=== PATIENT | male | born 1955 | race American Indian/Alaskan Native ===

== ENCOUNTER 2018-04-18 09:52 | Outpatient (CLI) | payer BC ==
--- NOTE | 2018-04-18 11:10 | CT ---
HEAD CT WITHOUT CONTRAST: 04/18/2018 HISTORY: Fall. Headache. Subdural hematoma. COMPARISON: None. TECHNIQUE: Serial axial CT imaging at 4.5 mm intervals, from the vertex through the skull base, without contrast . FINDINGS: The imaged paranasal sinuses and mastoid air cells are well aerated. There is no displaced calvarial fracture. There is no intracranial hemorrhage, midline shift, mass effect, or ventricular enlargement. IMPRESSION: No intracranial hemorrhage or displaced calvarial fracture. POS: [facility]
== END 2018-04-18 09:53 | disposition home or self-care (01) ==
LOC: TBSIIMAG 09:52
PROVIDERS: ATTEND Surgery
DX: S06.5X0A Traumatic subdural hemorrhage without loss of consciousness, initial encounter (principal)
CPT/HCPCS: 70450

== ENCOUNTER 2019-05-18 14:53 | Inpatient (IN) | payer BC ==
[2019-05-18] MEDS ORDERED: HumaLOG 300 UNITS/3 ML VIAL SC PRN (17:48)
[2019-05-18] MEDS ORDERED: traMADol HCl 50 MG TAB PO PRN (17:49)
[2019-05-18] MEDS ORDERED: Tuberculin PPD 0.1 ML VIAL I-DERMAL SCH (18:00)
[2019-05-18 18:04] VITALS: BMI 26.6
[2019-05-18 19:15] LABS: #Eosinphils 0.3 thou/uL (0.0-0.7); #Lymphocytes 1.6 thou/uL (1.20-3.40); #Monocytes 0.5 thou/uL (0.11-0.59); #Neutrophils 5.5 thou/uL (1.40-6.50); %Basophils 0.2 % (0.0-1.0); %Eosinophils 3.8 % (0.0-10.0); %Lymphocytes 20.5 % (21.0-51.0); %Monocytes 5.7 % (0.0-10.0); %Neutrophils 69.9 % (42.0-75.0); Hemoglobin 10.9 g/dL (14.0-18.0); Mean Corpuscular HGB CONC 31.4 g/dL (32.0-36.0); Mean Corpuscular Hemoglobin 23.3 pg (27.0-31.0); Mean Corpuscular Volume 74.4 fL (78.0-98.0); Mean Platelet Volume 11.7 fL (7.4-10.4); Platelet Count 205 thou/uL (130-400); Red Blood Cell (RBC) Count 4.66 mill/uL (4.70-6.10); White Blood Cell (WBC) Count 7.9 thou/uL (4.8-10.8)
[2019-05-18 19:28] LABS: ALT (SGPT) 9 U/L (8-55); AST (SGOT) 9 U/L (5-34); Albumin 4.2 g/dL (3.4-4.8); Alkaline Phosphatase 91 U/L (40-150); Anion Gap 18 mmol/L (10-20); BUN (Urea Nitrogen) 93 mg/dL (8.4-25.7); Bilirubin, Total 0.3 mg/dL (0.2-1.2); Calc. Creatinine Clearance 9 mL/min (70-130); Calcium 9.9 mg/dL (7.8-10.44); Carbon Dioxide 22 mmol/L (23-31); Chloride 99 mmol/L (98-107); Estimated GFR-MDRD 6; Globulin 3.4 g/dL (2.4-3.5); Glucose 123 mg/dL (80-115); Phosphorus 6.9 mg/dL (2.3-4.7); Potassium 3.6 mmol/L (3.5-5.1); Protein, Total 7.6 g/dL (5.8-8.1); Sodium 135 mmol/L (136-145)
[2019-05-18 19:45] LABS: Anisocytosis SLIGHT = 6-15 cells (100X) (0-5/hpf); Hypochromia SLIGHT = 6-15 cells (100X) (0-5/hpf); MDiff Complete? YES; Microcytosis SLIGHT = 6-15 cells (100X) (0-5/hpf); Platelet Morphology Comment Appears Adequate; Polychromasia SLIGHT = 2-3 cells (100X) (0-2/hpf); Schistocytes SLIGHT = 2-5 cells (100X) (0-1/hpf); Tear Drops SLIGHT = 2-5 cells (100X) (0-1/hpf)
[2019-05-18 19:50] LABS: HBSAg Index 0.43 S/CO (0-0.99); Hep B Surf Ag Non-Reactive S/CO (NonReactive); Hep C IgG Ab Non-Reactive (NonReactive); Hep C Index 0.15 S/CO (0-0.79)
[2019-05-18 19:51] LABS: Hep A IgM AB Non-Reactive (NonReactive); Hep A IgM S/CO 0.17 S/CO (0-0.79)
[2019-05-18 19:52] LABS: HBCM Index 0.05 S/CO (0-0.79); Hepatitis B Core IgM Abs Non-Reactive (NonReactive)
[2019-05-18] MEDS ORDERED: Dextrose 5% in Water 1,000 ML IV PRN (19:56)
[2019-05-18] MEDS ORDERED: Dextrose 50% Abboject 50 ML SYRINGE SLOW IVP PRN (19:56)
[2019-05-18] MEDS ORDERED: PROVENTIL INHALER 6.7 G (200 INHALATIONS) INH PRN (19:56)
[2019-05-18 19:59] LABS: HIV (1/2) Antibody/Antigen Non-Reactive (NonReactive); HIV 1/2 INDEX 0.24 S/CO (<1.00)
[2019-05-18 20:00] LABS: Bacteria/HPF None Seen HPF (None Seen); Bilirubin Negative (Negative); Blood, Urine Trace (Negative); Clarity Clear (Clear); Glucose, Urine (Dipstick) Normal (Negative); Leukocyte Negative Leu/uL (Negative); Nitrite Negative (Negative); Protein, Urine (Dipstick) 100 mg/dL (Neg-Trace); RBC/HPF 0-3 HPF (0-3); Squamous Epithelial None Seen HPF (0-3); Urobilinogen Normal mg/dL (Less than 2); WBC/HPF 0-3 HPF (0-3)
[2019-05-18 20:15] LABS: Creatinine, Urine 25.75 mg/dL (63-166)
[2019-05-18] MEDS ORDERED: Metoprolol Tartrate 50 MG TAB PO SCH (21:00)
[2019-05-18] MEDS ORDERED: Atorvastatin Calcium 10 MG TAB PO SCH (21:00)
[2019-05-18] MEDS: Brimonidine Tartrate 0.2% Ophth Soln 5 ml Bottle EA EYE SCH (21:11)
[2019-05-18] MEDS: Insulin Glargine 25 UNITS in Pre-Filled Syringe SC SCH (21:13)
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
[2019-05-19] MEDS: Levothyroxine Sodium 50 MCG TAB PO SCH (05:32)
[2019-05-19 06:23] LABS: Free T4 (Free Thyroxine) 0.83 ng/dL (0.70-1.48); Thyroid Stimulating Hormone 1.6161 uIU/mL (0.35-4.94)
--- NOTE | 2019-05-19 08:17 | PRG ---
DATE OF SERVICE: 05/19/2019 SUBJECTIVE: He verbalizes no complaints. OBJECTIVE: VITAL SIGNS: Temperature 98.2, blood pressure 169/74. LUNGS: Clear. HEART: Reveals no murmur. LABORATORY DATA: Hemoglobin 10.9, hematocrit 34.7. Sodium 135, potassium 3.6, chloride 99, CO2 of 22, BUN 93, creatinine 8.62, and glucose is 209. IMPRESSION: End-stage renal disease, awaiting dialysis. PLAN: From medical standpoint, he is clear. We will await for surgical evaluation as well as Nephrology input for this procedures. Job ID: [id number]
[2019-05-19] MEDS: Brimonidine Tartrate 0.2% Ophth Soln 5 ml Bottle EA EYE SCH (08:39)
[2019-05-19] MEDS: Amlodipine 10 MG TAB PO SCH (08:40)
--- NOTE | 2019-05-19 08:45 | ULT ---
BILATERAL UPPER EXTREMITY VENOUS DOPPLER ULTRASOUND FOR DIALYSIS ACCESS: 05/19/19 HISTORY: End-stage renal disease. AV fistula placement. FINDINGS: RIGHT UPPER EXTREMITY BRACHIAL ARTERY: 5 mm RADIAL ARTERY: 2.9 mm ULNAR ARTERY: 3.2 mm CEPHALIC VEIN Proximal Arm: 3 mm Mid Arm: 2.1 mm Distal Arm: 2.1 mm Antecubital Fossa: 2.7 mm Proximal Forearm: 2 mm Mid Forearm: 1.4 mm Distal Forearm: 1.2 mm BASILIC VEIN Proximal Arm: 4.9 mm Mid Arm: 4.6 mm Distal Arm: 2.5 mm Antecubital Fossa: 0.8 mm Proximal Forearm: 1.2 mm Mid Forearm: 0.7 mm Distal Forearm: 0.7 mm LEFT UPPER EXTREMITY BRACHIAL ARTERY: 5.7 mm RADIAL ARTERY: 2.3 mm ULNAR ARTERY: 2.6 mm CEPHALIC VEIN Proximal Arm: 3 mm Mid Arm: 3 mm Distal Arm: 1.7 mm Antecubital Fossa: 2.8 mm Proximal Forearm: 1.1 mm Mid Forearm: 1 mm Distal Forearm: 0.7 mm The cephalic vein in the arm courses in the medial aspect of the arm. BASILIC VEIN Proximal Arm: 3.9 mm Mid Arm: 3 mm Distal Arm: 3.1 mm Antecubital Fossa: 2.3 mm Proximal Forearm: 1.2 mm Mid Forearm: 0.8 mm Distal Forearm: 0.8mm POS: [facility]
[2019-05-19] MEDS ORDERED: Non-Formulary Item 1 EACH (Losartan Potassium [Losartan Potassium] 100 MG) PO SCH (09:00)
[2019-05-19] MEDS ORDERED: Losartan 25 MG TAB PO SCH ×2 (09:00→21:00)
[2019-05-19] MEDS ORDERED: Levothyroxine Sodium 50 MCG TAB PO SCH (09:00)
[2019-05-19] MEDS ORDERED: Amlodipine 10 MG TAB PO SCH (09:00)
[2019-05-19] MEDS ORDERED: CEFAZOLIN 2 GM, Admixture Fee 1 EACH in Sodium Chloride 0.9% 100 ML IVPB SCH (19:00)
[2019-05-19] MEDS ORDERED: Fentanyl 100 MCG/2 ML VIAL ONE (21:49)
[2019-05-19] MEDS ORDERED: Lidocaine 2% Jelly 5 ML TUBE ONE (21:49)
[2019-05-19] MEDS ORDERED: Heparin 10,000 UNITS/1 ML VIAL ONE (22:00)
[2019-05-19] MEDS ORDERED: Sodium Chloride 0.9% 30 ML ONE (22:00)
[2019-05-19] MEDS ORDERED: Bupivacaine/Epinephrine 0.25% 30 ML VIAL ONE (22:00)
[2019-05-19] MEDS ORDERED: Protamine Sulfate 50 MG/5 ML VIAL ONE (22:00)
[2019-05-19] MEDS ORDERED: Lidocaine 2% PF 5 ML VIAL ONE (22:00)
[2019-05-19] MEDS ORDERED: Ioversol 68 % 50 ML VIAL ONE (22:00)
[2019-05-19] MEDS ORDERED: Heparin 5,000 UNITS/ML VIAL ONE (22:00)
[2019-05-19] MEDS ORDERED: HYDROmorphone 2 MG/ML VIAL ONE (22:09)
[2019-05-19] MEDS ORDERED: ceFAZolin Sodium (SDC) 2 GM/100 ML BAG ONE (22:13)
[2019-05-19] MEDS ORDERED: Heparin 10,000 UNITS/ 10 ML VIAL ONE (22:45)
[2019-05-19] MEDS ORDERED: Labetalol HCl 100 MG/20 ML VIAL ONE (22:45)
[2019-05-19] MEDS ORDERED: Lidocaine 1% PF 5 ML VIAL ONE (22:45)
[2019-05-19] MEDS ORDERED: ePHEDrine 50 MG/ML VIAL ONE (22:45)
[2019-05-19] MEDS ORDERED: PROPOFOL 200 MG/20 ML VIAL ONE (22:45)
[2019-05-19] MEDS ORDERED: Ondansetron PF 4 MG/2 ML Vial ONE (22:45)
[2019-05-20] MEDS ORDERED: Promethazine HCl 25 MG/ML VIAL IM PRN (01:24)
[2019-05-20] MEDS ORDERED: Promethazine HCl 25 MG/ML VIAL SLOW IVP PRN (01:24)
[2019-05-20] MEDS ORDERED: Ondansetron HCl/PF 4 MG/2 ML Vial IVP PRN (01:24)
[2019-05-20] MEDS: Brimonidine Tartrate 0.2% Ophth Soln 5 ml Bottle EA EYE SCH ×3 (02:55→21:01)
[2019-05-20] MEDS: Insulin Glargine 25 UNITS in Pre-Filled Syringe SC SCH ×3 (02:56→21:05)
[2019-05-20] MEDS: Losartan 25 MG TAB PO SCH ×2 (02:57→21:01)
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
[2019-05-20] MEDS: Levothyroxine Sodium 50 MCG TAB PO SCH (05:50)
[2019-05-20] MEDS: Insulin Regular 300 UNITS/3 ML VIAL SC PRN ×2 (05:51→12:23)
--- NOTE | 2019-05-20 07:53 | RAD ---
EXAM: CHEST ONE VIEW HISTORY: Post hemodialysis catheter insertion. COMPARISON: None FINDINGS: A tunneled right internal jugular vein hemodialysis catheter is noted in place. Cardiac silhouette is magnified by projection but does appear mildly enlarged. The pulmonary vasculature is within normal limits. The lungs are clear. Postsurgical changes lower cervical spine are seen. IMPRESSION: 1. Right internal jugular vein hemodialysis catheter noted in place. No pneumothorax or pleural effus ion is seen. 2. Mild cardiomegaly.
[2019-05-20] MEDS: Amlodipine 10 MG TAB PO SCH (08:25)
--- NOTE | 2019-05-20 09:48 | PDOC.OP ---
Operative Note - Operative Note Operative Note: DATE OF PROCEDURE:[id number] PROCEDURE: Placement of right internal jugular tunneled hemodialysis catheter with ultrasound and fluoroscopic guidance, left Charito AV fistula. SURGEON: Betito Allen M.D. PREOPERATIVE DIAGNOSIS: End-stage renal failure. POSTOPERATIVE DIAGNOSIS: End-stage renal failure. HISTORY: Patient with renal failure. A tunneled hemodialysis catheter for ongoing dialysis has been requested by the patients party plan demonstrator, with fistula for long-term access.. PROCEDURE: After informed consent was obtained and appropriate preoperative antibiotics were administered, the patient was taken to the Operating Room, placed in the supine position and monitored anesthesia care was administered. The left arm, and the entire neck and chest were prepped and draped in a standard sterile fashion and the patient placed in Trendelenburg position. A sterile ultrasound probe was used to identify the patent compressible right IJ vein which was accessed under direct ultrasound guidance. A wire was threaded through the needle and confirmed by ultrasound to be within the patent compressible vessel with the tip in the vena cava by fluoroscopy. Local anesthesia was infused to the skin and subcutaneous tissues of the right neck and chest. An infraclavicular incision was made and a catheter tunneled from the infraclavicular to the right IJ access site. The right IJ was sequentially dilated over the wire following which a dilator and sheath were placed over the wire and the dilator and wire removed leaving the sheath in place. The catheter was tunneled through the sheath which was then split and removed leaving the catheter in place. This was confirmed by fluoroscopy to be in good position in the superior vena cava with no kinking of the course of the catheter. Both ports easily aspirated dark venous nonpulsatile blood and easily flushed without resistance. Heparin was instilled to the quantity specified on the hub , and the hub was secured to the skin with 3-0 nylon sutures. The skin incision at the neck was closed in two layers with 4-0 Monocryl suture and Dermabond dressings were placed. The skin at the exit site was snugged up around the catheter with 4-0 Monocryl suture and Dermabond was placed there as well. Once the Dermabond was dry, a chlorhexidine infused sterile dressing was placed at the exit site. Attention was then turned to creation of the left AV fistula. The ultrasound was used to identify the course of the cephalic vein and this was marked on the skin. The palpable radial artery was also marked. An incision was made between these 2 structures and dissection carried down to the cephalic vein. This was felt to be of adequate caliber and quality to support an AV fistula. The vein was interrogated with cardiac dilators and was found to have a stricture in the distal cephalic vein at the level of the wrist, so the vein was dissected free more proximally and at this level was found to easily accept up to a 3 mm dilator. The vein was flushed with heparinized saline and clamped. The radial artery was identified and dissected free and was felt to be of adequate caliber and quality to support a fistula. This was dissected free. Heparin was administered systemically and allowed to circulate for 3 minutes. After the heparin had circulated for 3 minutes, the radial artery was clamped proximally and distally. An anterior arteriotomy was created with an 11 blade and extended with Davalos scissors. The vein was spatulated and an end-to-side anastomosis was created with excellent technical result. Prior to tying down the anastomosis, the arterial inflow was released flushing the anastomosis. The anastomosis was then secured and hemostasis was verified. Flow was established first through the fistula following which flow was restored through the artery. The patient had a palpable thrill in the cephalic vein as well as a good Doppler signal to the level of the antecubital fossa. The wound was irrigated and examined for hemostasis was again confirmed to be excellent. The subcutaneous tissues were reapproximated with a running 3-0 Monocryl sutures and the skin was closed with running 4-0 subcuticular Monocryl suture. Dermabond dressings were placed. Prior to leaving the operating room the fistula was again examined by Doppler and a good bruit confirmed. The patient was then taken to recovery in good condition. Estimated blood loss was minimal. There were no complications. There were no specimens.
--- NOTE | 2019-05-20 12:30 | PRG ---
DATE OF SERVICE: 05/20/2019 SUBJECTIVE: The patient is doing well. He is awaiting initiation of dialysis. He has no medical complaints today. OBJECTIVE: VITAL SIGNS: Blood pressure 173/68, temperature 98.6, and O2 saturation 95% on room air. GENERAL: He is alert and active, in no distress. LUNGS: Clear. HEART: Reveals a regular rate and rhythm. No murmurs, gallops, or rubs. LABORATORY DATA: His blood sugars are adequately controlled. IMPRESSION: End-stage renal disease. PLAN: The patient would begin initiation of dialysis under Dr. Mcfarland. Job ID: [id number]
[2019-05-20] MEDS: traMADol HCl 50 MG TAB PO PRN ×2 (15:31→21:04)
--- NOTE | 2019-05-20 17:28 | PDOC.GSPN ---
Surgery Progress Note: Subj - Subjective Narrative: Patient feels okay except for some swelling and soreness in his left hand and arm. His fistula has an excellent thrill. He has [id number] swelling of his hand and forearm. He has not had dialysis today. Assessment/plan: Doing well status post dialysis catheter and left AV fistula. I will see him back in my clinic in 2-3 weeks. He is to continue to exercise his hand as he has been doing. Surgery Progress Note: Obj - Vital signs Vital signs: Vital Signs - Most Recent Temp Pulse Resp BP Pulse Ox 98.4 F 72 18 158/73 H 100 05/20/19 16:05 05/20/19 16:05 05/20/19 16:05 05/20/19 16:05 05/20/19 16:05 Surgery Progress Note: Results - Labs Result Diagrams: 05/18/19 19:01 05/18/19 19:01 Lab results: Laboratory Results - last 24 hr 05/20/19 05/20/19 05/20/19 05:49 11:01 15:54 POC Glucose 221 H 193 H 165 H
[2019-05-20] MEDS: READ PPD TEST SITE PO SCH (18:00)
[2019-05-21] MEDS: Levothyroxine Sodium 50 MCG TAB PO SCH (06:05)
--- NOTE | 2019-05-21 07:29 | PRG ---
DATE OF SERVICE: 05/21/2019 SUBJECTIVE: The patient is doing well. He has had his AV fistula placed. He has no complaints. He is awaiting dialysis. OBJECTIVE: VITAL SIGNS: Blood pressure 166/70, temperature 98.2. LUNGS: Clear. HEART: Reveals no murmur. LABORATORY DATA: His blood sugars are out of control. IMPRESSION: End-stage renal disease. PLAN: Await dialysis. I had to hear from Nephrology the estimated time length he needs to be admitted for initiation of dialysis therapy. Job ID: [id number]
[2019-05-21] MEDS: Amlodipine 10 MG TAB PO SCH (12:25)
[2019-05-21] MEDS: Brimonidine Tartrate 0.2% Ophth Soln 5 ml Bottle EA EYE SCH ×2 (12:25→21:06)
[2019-05-21] MEDS: Insulin Regular 300 UNITS/3 ML VIAL SC PRN (17:50)
[2019-05-21] MEDS: READ PPD TEST SITE PO SCH (18:01)
[2019-05-21] MEDS: Insulin Glargine 25 UNITS in Pre-Filled Syringe SC SCH (20:58)
[2019-05-21] MEDS: Losartan 25 MG TAB PO SCH (20:59)
[2019-05-22] MEDS: Levothyroxine Sodium 50 MCG TAB PO SCH (04:59)
[2019-05-22 07:29] LABS: #Eosinphils 0.3 thou/uL (0.0-0.7); #Lymphocytes 1.5 thou/uL (1.20-3.40); #Monocytes 0.9 thou/uL (0.11-0.59); #Neutrophils 6.6 thou/uL (1.40-6.50); %Basophils 0.4 % (0.0-1.0); %Eosinophils 3.1 % (0.0-10.0); %Monocytes 9.6 % (0.0-10.0); Hemoglobin 9.4 g/dL (14.0-18.0); Mean Corpuscular HGB CONC 31.7 g/dL (32.0-36.0); Mean Corpuscular Hemoglobin 23.2 pg (27.0-31.0); Mean Corpuscular Volume 73.1 fL (78.0-98.0); Mean Platelet Volume 7.7 fL (7.4-10.4); Platelet Count 171 thou/uL (130-400); RBC Distribution Width 15.8 % (11.5-14.5); Red Blood Cell (RBC) Count 4.06 mill/uL (4.70-6.10); White Blood Cell (WBC) Count 9.3 thou/uL (4.8-10.8)
[2019-05-22 07:45] LABS: Albumin 3.5 g/dL (3.4-4.8); Anion Gap 18 mmol/L (10-20); BUN (Urea Nitrogen) 78 mg/dL (8.4-25.7); BUN/Creatinine Ratio 10.01; Calc. Creatinine Clearance 10 mL/min (70-130); Calcium 9.7 mg/dL (7.8-10.44); Carbon Dioxide 23 mmol/L (23-31); Chloride 98 mmol/L (98-107); Estimated GFR-MDRD 7; Glucose 103 mg/dL (80-115); Phosphorus 6.5 mg/dL (2.3-4.7); Potassium 3.6 mmol/L (3.5-5.1); Sodium 135 mmol/L (136-145)
--- NOTE | 2019-05-22 08:07 | PRG ---
DATE OF SERVICE: 05/22/2019 SUBJECTIVE: He is doing well. He informs me that he will be leaving tomorrow after dialysis. No other medical problems are noted. OBJECTIVE: VITAL SIGNS: Blood pressure 166/69 and temperature 98.8. LABORATORY DATA: His hemoglobin is 9.4, hematocrit 29.7, sodium 135, creatinine 7.79. His blood sugar is controlled. IMPRESSION: 1. End-stage renal disease. 2. Type 2 diabetes mellitus, now insulin dependent. He is stable for discharge tomorrow in my opinion after he finishes dialysis. Job ID: [id number]
[2019-05-22 08:24] LABS: Hypochromia SLIGHT = 6-15 cells (100X) (0-5/hpf); MDiff Complete? YES; Microcytosis MODERATE=15-30 cells (100X) (0-5/hpf); Platelet Morphology Comment Appears Adequate; Polychromasia SLIGHT = 2-3 cells (100X) (0-2/hpf)
[2019-05-22] MEDS: Brimonidine Tartrate 0.2% Ophth Soln 5 ml Bottle EA EYE SCH ×2 (10:10→20:51)
[2019-05-22] MEDS: Amlodipine 10 MG TAB PO SCH (10:10)
[2019-05-22] MEDS ORDERED: Heparin 1,000 UNITS/ML VIAL ONE (11:11)
[2019-05-22] MEDS: Losartan 25 MG TAB PO SCH (20:50)
[2019-05-22] MEDS: Insulin Glargine 25 UNITS in Pre-Filled Syringe SC SCH (20:51)
[2019-05-23] MEDS: Levothyroxine Sodium 50 MCG TAB PO SCH (06:00)
[2019-05-23] MEDS ORDERED: Heparin 1,000 UNITS/ML VIAL ONE (11:11)
[2019-05-23] MEDS ORDERED: INSULIN LISPRO SQ PRN (11:36)
[2019-05-23] MEDS: Amlodipine 10 MG TAB PO SCH (12:17)
[2019-05-23 12:18] VITALS: BP 165/77
[2019-05-23] MEDS: Brimonidine Tartrate 0.2% Ophth Soln 5 ml Bottle EA EYE SCH (12:18)
[2019-05-23 12:31] VITALS: TEMP 98.1
[2019-05-23] MEDS ORDERED: Non-Formulary Item 1 EACH (Insulin Glargine,Hum.Rec.Anlog [Lantus Solostar] 35 UNIT) SC SCH (21:00)
[2019-05-23] MEDS ORDERED: Insulin Glargine 35 UNITS in Pre-Filled Syringe 1 EACH SC SCH (21:00)
[2019-05-24] MEDS ORDERED: Fluticasone Propionate Nasal Spray 16 gm Bottle NASAL SCH (09:00)
[2019-05-24] MEDS ORDERED: Ascorbic Acid 500 mg Chewable Tablet PO SCH (09:00)
--- NOTE | 2019-05-26 22:29 | EKG ---
Test Reason : STAT Blood Pressure : / mmHG Vent. Rate : 067 BPM Atrial Rate : 067 BPM P-R Int : 212 ms QRS Dur : 092 ms QT Int : 440 ms P-R-T Axes : 052 018 057 degrees QTc Int : 464 ms Sinus rhythm with 1st degree A-V block Otherwise normal ECG No previous ECGs available Confirmed by Alison LORENZO ([id number]) on 05/26/2019 10:29:38 PM Referred By: Eliecer SAHU Confirmed By:Alison LORENZO
== END 2019-05-23 13:41 | disposition home or self-care (01) | DRG 673 ==
LOC: 3SE 14:53 → T4-A 05-20 01:47
PROVIDERS: ADMIT Family Medicine; ATTEND Family Medicine
PROC: 031C0ZF Bypass Left Radial Artery to Lower Arm Vein, Open Approach (ICD-10-PCS; principal; 2019-05-19)
PROC: 5A1D70Z Performance of Urinary Filtration, Intermittent, Less than 6 Hours Per Day (ICD-10-PCS; 2019-05-19)
PROC: 0JH63XZ Insertion of Tunneled Vascular Access Device into Chest Subcutaneous Tissue and Fascia, Percutaneous Approach (ICD-10-PCS; 2019-05-19)
PROC: 02HV33Z Insertion of Infusion Device into Superior Vena Cava, Percutaneous Approach (ICD-10-PCS; 2019-05-19)
PROC: B548ZZA Ultrasonography of Superior Vena Cava, Guidance (ICD-10-PCS; 2019-05-19)
PROC: B5181ZA Fluoroscopy of Superior Vena Cava using Low Osmolar Contrast, Guidance (ICD-10-PCS; 2019-05-19)
DX: I12.0 Hypertensive chronic kidney disease with stage 5 chronic kidney disease or end stage renal disease (principal); N18.6 End stage renal disease; N17.9 Acute kidney failure, unspecified; D63.1 Anemia in chronic kidney disease; E11.22 Type 2 diabetes mellitus with diabetic chronic kidney disease; E78.5 Hyperlipidemia, unspecified; H40.89 Other specified glaucoma; E03.9 Hypothyroidism, unspecified; J45.20 Mild intermittent asthma, uncomplicated; M19.90 Unspecified osteoarthritis, unspecified site; Z96.652 Presence of left artificial knee joint; V49.9XXA Car occupant (driver) (passenger) injured in unspecified traffic accident, initial encounter; Y93.9 Activity, unspecified; Z99.3 Dependence on wheelchair; Z79.4 Long term (current) use of insulin; Z87.81 Personal history of (healed) traumatic fracture; Z90.49 Acquired absence of other specified parts of digestive tract
CPT/HCPCS: 36415; 36416; 71045; 80053; 80069; 80074; 81001; 82570; 84100; 84156; 84439; 84443; 84481; 85025; 86580; 87389; 93005; 93010; 93970; C1752; C1769; G0365; J0690; J1170; J1644; J1815; J2001; J2405; J2704; J2720; J3010; J3490; Q9967

== ENCOUNTER 2019-10-13 07:01 | Day surgery (SDC) | payer BC, MEDICARE ==
[2019-10-12 15:17] VITALS: BMI 26.6
[2019-10-13] MEDS ORDERED: FLU VACC QS2019-20(6MOS UP)/PF 60 MCG/0.5 ML SYRINGE IM ONE (09:00)
[2019-10-13 09:25] VITALS: BP 164/71; TEMP 97.6
--- NOTE | 2019-10-13 09:34 | SPC ---
Left upper extremity dialysis fistulogram Sonographic guided vascular access HISTORY: Renal failure. Difficulty in access of left upper extremity dialysis fistula FINDINGS: After explaining the procedure and answering all questions, the left upper extremity was pr epped and draped in usual sterile fashion. Sterile technique, buffered local anesthesia, sonographic guidance, and a 22-gauge needle were used to carefully access the left forearm cephalic d ialysis fistula at the level of the distal radial shaft. A 4 Salvadorean micropuncture sheath was placed for serial imaging The cephalic vein of the forearm is widely patent. The arterial anastomosis patent. There is a small collateral near the the arterial anastomosis where a venous structure extends along the more lateral aspect of the forearm. A few other small collaterals are also present at the level of the cep halic vein forearm. At the antecubital fossa, multiple collaterals are present, with flow to the upper arm in the basilic and brachial veins. At the upper arm, the cephalic vein is very small and empties into the brachial vein at the level of the proximal humeral shaft, more distal than usual. Superior vena cava is patent. No focal areas of outflow narrowing or focal stenoses evident. Catheter was removed and hemostasis obtained using direct pressure. Patient tolerated the procedure w ell and was dismissed in good condition. Fluoroscopy time 0.9 minutes. IMPRESSION: Left forearm cephalic dialysis fistula is widely patent without evidence of complication. A few small collaterals are as detailed above. The cephalic vein of the left upper arm is very small and shows a peripheral junction with the brachi al vein.
== END 2019-10-13 09:10 | disposition home or self-care (01) ==
LOC: SPEC 07:01
PROVIDERS: ATTEND Surgery
PROC: B51W1ZZ Fluoroscopy of Dialysis Shunt/Fistula using Low Osmolar Contrast (ICD-10-PCS; principal; 2019-10-13)
DX: T82.898A Other specified complication of vascular prosthetic devices, implants and grafts, initial encounter (principal); I12.0 Hypertensive chronic kidney disease with stage 5 chronic kidney disease or end stage renal disease; E11.22 Type 2 diabetes mellitus with diabetic chronic kidney disease; N18.6 End stage renal disease; E03.9 Hypothyroidism, unspecified; Z79.4 Long term (current) use of insulin; Z79.899 Other long term (current) drug therapy
CPT/HCPCS: 36901; 76942

== ENCOUNTER 2020-02-23 07:18 | Day surgery (SDC) | payer BC, MEDICARE ==
[2020-02-22 14:24] VITALS: BMI 26.6
[2020-02-23] MEDS ORDERED: Heparin 1,000 UNITS/ML VIAL ONE (09:12)
[2020-02-23 09:25] VITALS: BP 122/57; TEMP 98.7
--- NOTE | 2020-02-23 09:35 | SPC ---
PROCEDURE: [facility] [place] INTRO CATH DIALY CIRC/AV S PROVIDED CLINICAL HISTORY: Patient with end-stage renal disease and left upper extremity arteriovenous dialysis fistula. Patient is having increased bleeding at dialysis. COMPARISON: 10/13/2019 TECHNIQUE: After informed consent was obtained, limited sonographic evaluation of the left upper extremity arter iovenous dialysis fistula was performed. Left upper extremity was meticulously prepped and draped in usual sterile fashion. Skin and subcutaneous tissues at the intended puncture site distal left for earm were infiltrated with buffered 1% lidocaine for local anesthesia. The cephalic vein outflow of the radiocephalic fistula was accessed utilizing micropuncture technique, and a 5 Divehi introducer s jef was placed directed in the venous direction. A fistulogram and venogram to the SVC were performed. Manual compression was applied to the venous ou tflow, but the arteriovenous anastomosis was unable to be refluxed due to multiple collateral vessels. As result, a blood pressure cuff was applied to the arm and inflated above systolic blood pr essure, and contrast was again injected refluxing the arteriovenous anastomosis. The catheter was flushed and then removed, and hemostasis was achieved with direct pressure. Patient tolerated the procedure well and without immediate complication. Patient was transported to radiology nurses holding area for further monitoring prior to discharge. FINDINGS: Left upper extremity Charito fistula. The arteriovenous anastomosis is patent. The cephalic vein in th e forearm is patent. However, the cephalic vein in the arm is not visualized, and there are multiple collaterals beginning at the level of the elbow, and outflow is preferentially via the colla teral vessels to the upper arm basilic and brachial veins. Basilic vein in the lower arm occludes, but collateral vessels communicate with a patent basilic vein in the most proximal arm. The central v eins are patent to the SVC. A few small collaterals are seen at the level of the cephalic vein in the forearm near the level of the anastomosis. There is no focal outflow stenosis, but outflow is andreea marilou via multiple collateral veins. Fluoroscopy: Time-0.8 minutes Dose-10,674 mGy centimeter squared IMPRESSION: Left upper extremity Charito fistula with patent cephalic vein outflow in the forearm, but the cephali c vein in the arm is not visualized. Outflow of the left upper extremity arteriovenous dialysis fistula is preferentially via multiple collaterals beginning at the level of the elbow which communic ate with the brachial and basilic veins of the arm. No focal stenosis is present, but again, outflow is preferentially via multiple collaterals beginning at the level of the elbow.
[2020-02-23] MEDS ORDERED: Iopamidol 300 61% 100 ML VIAL FS ONE (15:25)
== END 2020-02-23 09:00 | disposition home or self-care (01) ==
LOC: SPEC 07:18
PROVIDERS: ATTEND Internal Medicine Nephrology
PROC: B51 Imaging, Veins, Fluoroscopy (ICD-10-PCS; principal; 2020-02-23)
DX: T82.838A Hemorrhage due to vascular prosthetic devices, implants and grafts, initial encounter (principal); I12.0 Hypertensive chronic kidney disease with stage 5 chronic kidney disease or end stage renal disease; E11.22 Type 2 diabetes mellitus with diabetic chronic kidney disease; N18.6 End stage renal disease; E03.9 Hypothyroidism, unspecified; J45.909 Unspecified asthma, uncomplicated; M19.90 Unspecified osteoarthritis, unspecified site; Z79.4 Long term (current) use of insulin; Z79.899 Other long term (current) drug therapy; Z99.2 Dependence on renal dialysis
CPT/HCPCS: 36901; J1644; Q9967

== ENCOUNTER 2020-06-27 06:20 | Outpatient (CLI) | payer BC, MEDICARE, OTHER ==
[2020-06-27 14:30] LABS: #Eosinphils 0.2 thou/uL (0.0-0.7); #Lymphocytes 1.6 thou/uL (1.20-3.40); #Monocytes 0.6 thou/uL (0.11-0.59); #Neutrophils 3.4 thou/uL (1.40-6.50); %Basophils 0.1 % (0.0-1.0); %Eosinophils 3.4 % (0.0-10.0); %Lymphocytes 27.3 % (21.0-51.0); %Monocytes 10.3 % (0.0-10.0); %Neutrophils 58.9 % (42.0-75.0); Hemoglobin 9.3 g/dL (14.0-18.0); Mean Corpuscular HGB CONC 31.8 g/dL (32.0-36.0); Mean Corpuscular Hemoglobin 27.7 pg (27.0-31.0); Mean Corpuscular Volume 86.9 fL (78.0-98.0); Platelet Count 161 thou/uL (130-400); Red Blood Cell (RBC) Count 3.35 mill/uL (4.70-6.10); White Blood Cell (WBC) Count 5.8 thou/uL (4.8-10.8)
[2020-06-27 14:51] LABS: ALT (SGPT) 18 U/L (8-55); AST (SGOT) 13 U/L (5-34); Albumin 4.2 g/dL (3.4-4.8); Alkaline Phosphatase 100 U/L (40-110); Anion Gap 17 mmol/L (10-20); BUN (Urea Nitrogen) 47 mg/dL (8.4-25.7); Bilirubin, Total 0.4 mg/dL (0.2-1.2); Calc. Creatinine Clearance 0 mL/min (70-130); Calcium 10.3 mg/dL (7.8-10.44); Carbon Dioxide 31 mmol/L (23-31); Chloride 94 mmol/L (98-107); Estimated GFR-MDRD 6; Globulin 2.6 g/dL (2.4-3.5); Glucose 111 mg/dL (80-115); Potassium 3.9 mmol/L (3.5-5.1); Protein, Total 6.8 g/dL (5.8-8.1); Sodium 138 mmol/L (136-145)
[2020-06-28 13:22] LABS: SARS-CoV-2 MS2 Positive; SARS-CoV-2 N Gene Negative; SARS-CoV-2 S Gene Negative; SARS-CoV-2 by NAA Not Detected (NotDetected); SARS-CoV-2 orf1ab Negative
== END 2020-06-27 06:21 | disposition home or self-care (01) ==
LOC: LABBT 06:20
PROVIDERS: ATTEND Internal Medicine Cardiovascular Disease
DX: Z01.812 Encounter for preprocedural laboratory examination (principal); Z20.828 Contact with and (suspected) exposure to other viral communicable diseases
CPT/HCPCS: 80053; 85025; 87635; U0003

== ENCOUNTER 2020-06-30 05:56 | Day surgery (SDC) | payer BC, MEDICARE ==
[2020-06-28 13:39] VITALS: BMI 26.8
[2020-06-30] MEDS ORDERED: Diazepam 5 MG TAB ONE (06:16)
[2020-06-30] MEDS ORDERED: Lidocaine 1% (PF) 30 ML VIAL ONE (06:33)
[2020-06-30] MEDS ORDERED: Iopamidol 370 76% 100 ML VIAL ONE (09:12)
== END 2020-06-30 12:15 | disposition home or self-care (01) ==
LOC: CCL 05:56
PROVIDERS: ATTEND Internal Medicine Cardiovascular Disease
DX: I25.10 Atherosclerotic heart disease of native coronary artery without angina pectoris (principal); I25.82 Chronic total occlusion of coronary artery; I12.0 Hypertensive chronic kidney disease with stage 5 chronic kidney disease or end stage renal disease; E11.21 Type 2 diabetes mellitus with diabetic nephropathy; E11.22 Type 2 diabetes mellitus with diabetic chronic kidney disease; N18.6 End stage renal disease; E03.9 Hypothyroidism, unspecified; E78.5 Hyperlipidemia, unspecified; Z79.4 Long term (current) use of insulin; Z79.899 Other long term (current) drug therapy; Z90.49 Acquired absence of other specified parts of digestive tract; Z99.2 Dependence on renal dialysis
CPT/HCPCS: 76942; 93458; J1644; J2001

== ENCOUNTER 2021-04-26 12:01 | Emergency (ER) | payer BC, MEDICARE | END 2021-04-26 16:16 | disposition home or self-care (01) | LOC: ERS 12:01 | DX: M25.532 Pain in left wrist (principal); W19.XXXA Unspecified fall, initial encounter; Z79.899 Other long term (current) drug therapy; Z79.4 Long term (current) use of insulin; E11.9 Type 2 diabetes mellitus without complications; E78.5 Hyperlipidemia, unspecified; E78.00 Pure hypercholesterolemia, unspecified; I10 Essential (primary) hypertension ==

== ENCOUNTER 2023-03-21 10:16 | Outpatient (CLI) | payer MEDICARE, BC | END 2023-03-21 10:17 | disposition home or self-care (01) | LOC: BICRAD 10:16 | PROVIDERS: ATTEND Family Medicine | DX: M25.511 Pain in right shoulder (principal); M25.521 Pain in right elbow ==

== ENCOUNTER 2023-08-23 13:10 | Inpatient (IN) | payer MEDICARE, BC ==
[2023-08-23] MEDS ORDERED: Iopamidol-370 76% 500 ML MDV (1 ML CHARGE) ONE (13:51)
[2023-08-23 14:23] LABS: #Monocytes 0.4 thou/uL (0.11-0.59); #Neutrophils 8.4 thou/uL (1.40-6.50); %Basophils 0.2 % (0.0-1.0); %Eosinophils 0.2 % (0.0-10.0); %Lymphocytes 8.4 % (21.0-51.0); %Monocytes 3.9 % (0.0-10.0); %Neutrophils 86.6 % (42.0-75.0); Hematocrit 25.1 % (42.0-52.0); Hemoglobin 7.4 g/dL (14.0-18.0); Mean Corpuscular HGB CONC 29.5 g/dL (32.0-36.0); Mean Corpuscular Hemoglobin 23.9 pg (27.0-31.0); Mean Platelet Volume 10.6 fL (7.4-10.4); Platelet Count 325 10x3/uL (130-400); RBC Distribution Width 18.3 % (11.5-14.5); White Blood Cell (WBC) Count 9.8 10x3/uL (4.8-10.8)
[2023-08-23] MEDS ORDERED: Morphine 4 MG/ML VIAL ONE ×2 (14:31→17:20)
[2023-08-23] MEDS ORDERED: Ondansetron PF 4 MG/2 ML Vial ONE ×2 (14:31→16:45)
[2023-08-23 14:45] LABS: ALT (SGPT) 8 U/L (8-55); AST (SGOT) 7 U/L (5-34); Albumin 4.1 g/dL (3.4-4.8); Alkaline Phosphatase 72 U/L (40-110); Anion Gap 22 mmol/L (10-20); BUN (Urea Nitrogen) 50 mg/dL (8.4-25.7); Bilirubin, Total 0.9 mg/dL (0.2-1.2); Calc. Creatinine Clearance 0 mL/min (70-130); Calcium 10.4 mg/dL (7.8-10.44); Carbon Dioxide 27 mmol/L (23-31); Chloride 94 mmol/L (98-107); Estimated GFR 5; Globulin 2.6 g/dL (2.4-3.5); Glucose 157 mg/dL (80-115); Lipase 24 U/L (8-78); Protein, Total 6.7 g/dL (5.8-8.1); Sodium 137 mmol/L (136-145)
[2023-08-23 14:49] LABS: Potassium 6.1 mmol/L (3.5-5.1)
[2023-08-23 15:08] LABS: PTT 31.3 sec (22.9-36.1); Prothrombin Time 13.4 sec (12.0-14.7)
[2023-08-23] MEDS ORDERED: Insulin Regular 300 UNITS/3 ML VIAL ONE (16:10)
[2023-08-23] MEDS ORDERED: Calcium Chloride 1 GM/10 ML Abboject SYRINGE ONE (16:10)
[2023-08-23] MEDS ORDERED: Sodium Bicarb 50 MEQ/50 ML VIAL IVP SCH (16:30)
[2023-08-23] MEDS ORDERED: Nitroglycerin 2% Ointment 1 INCH/1 GM Packet ONE (17:21)
[2023-08-23] MEDS ORDERED: Glucagon 1 MG/ML KIT IM PRN (17:28)
[2023-08-23] MEDS ORDERED: Dextrose 50% Abboject 50 ML SYRINGE SLOW IVP PRN (17:28)
[2023-08-23] MEDS ORDERED: Ondansetron PF 4 MG/2 ML Vial IVP PRN (17:28)
[2023-08-23] MEDS ORDERED: Dextrose 5% in Water 1,000 ML IV PRN (17:28)
[2023-08-23] MEDS ORDERED: HumaLOG 300 UNITS/3 ML VIAL SC PRN (17:28)
[2023-08-23] MEDS ORDERED: Pantoprazole 80 MG in Sodium Chloride 0.9% 100 ML IVPB SCH (17:45)
[2023-08-23 17:47] LABS: Lactic Acid 1.4 mmol/L (0.5-2.2)
[2023-08-23 18:07] LABS: Troponin I 0.169 ng/mL (< 0.028)
[2023-08-23 18:14] LABS: HBSAB Concentration Less than 8.00 mIU/mL; HBSAg Index 0.29 S/CO (0-0.99); Hep B Core Total Ab Non-Reactive (NonReactive); Hep B Core Total Index 0.12 S/CO (0-0.79); Hep B Surf AB Non-Reactive (NonReactive); Hep B Surf Ag Non-Reactive S/CO (NonReactive); Hep C IgG Ab Non-Reactive S/CO (NonReactive); Hep C Index 0.09 S/CO (0-0.79)
[2023-08-23 18:23] LABS: Hemoglobin 6.9 g/dL (14.0-18.0)
[2023-08-23] MEDS ORDERED: Furosemide 20 MG/2 ML VIAL IVP SCH (19:15)
[2023-08-23] MEDS ORDERED: Heparin 5,000 UNITS/ML VIAL SC SCH (21:00)
[2023-08-23] MEDS ORDERED: EPOETIN ALFA-EPBX (ESRD) 10,000 UNITS/ML VIAL SC SCH (22:00)
[2023-08-23 23:44] LABS: Hematocrit 27.2 % (42.0-52.0); Hemoglobin 8.4 g/dL (14.0-18.0)
[2023-08-23] MEDS: Acetaminophen 325 MG TAB PO PRN (23:45)
[2023-08-24 00:54] VITALS: BMI 25.8
[2023-08-24 04:59] LABS: #Neutrophils 14.5 thou/uL (1.40-6.50); %Basophils 0.1 % (0.0-1.0); %Lymphocytes 4.1 % (21.0-51.0); %Monocytes 6.3 % (0.0-10.0); Hematocrit 24.3 % (42.0-52.0); Hemoglobin 7.5 g/dL (14.0-18.0); Mean Corpuscular HGB CONC 30.9 g/dL (32.0-36.0); Mean Corpuscular Hemoglobin 25.3 pg (27.0-31.0); Mean Corpuscular Volume 81.8 fl (78.0-98.0); Platelet Count 284 10x3/uL (130-400); RBC Distribution Width 16.5 % (11.5-14.5); Red Blood Cell (RBC) Count 2.97 mill/uL (4.70-6.10); White Blood Cell (WBC) Count 16.3 10x3/uL (4.8-10.8)
[2023-08-24 05:14] LABS: Anion Gap 18 mmol/L (10-20); BUN (Urea Nitrogen) 20 mg/dL (8.4-25.7); Calc. Creatinine Clearance 15 mL/min (70-130); Calcium 9.2 mg/dL (7.8-10.44); Carbon Dioxide 27 mmol/L (23-31); Chloride 98 mmol/L (98-107); Estimated GFR 12; Glucose 173 mg/dL (80-115); Sodium 138 mmol/L (136-145)
[2023-08-24] MEDS ORDERED: FLU VACC QS2023(65UP)/MF59C/PF 60 MCG/0.5 ML SYRINGE IM ONE (09:00)
[2023-08-24] MEDS: Pantoprazole 80 MG, Admixture Fee 1 EACH in Sodium Chloride 0.9% 100 ML IVPB SCH (11:10)
[2023-08-24] MEDS ORDERED: TICAGRELOR 90 MG TABLET PO SCH (12:00)
[2023-08-24 14:00] LABS: Hematocrit 20.2 % (42.0-52.0); Hemoglobin 6.2 g/dL (14.0-18.0)
[2023-08-24] MEDS: Sevelamer Carbonate 800 MG TAB PO SCH (16:36)
[2023-08-24 17:58] LABS: Hematocrit 26.1 % (42.0-52.0); Hemoglobin 8.6 g/dL (14.0-18.0)
[2023-08-24] MEDS: Brimonidine Tartrate 0.2% Ophth Soln 5 ml Bottle EA EYE SCH (20:53)
[2023-08-24] MEDS: Atorvastatin Calcium 10 MG TAB PO SCH (20:53)
[2023-08-24] MEDS: TICAGRELOR 90 MG TABLET PO SCH (20:53)
[2023-08-25 05:36] LABS: #Eosinphils 0.3 thou/uL (0.0-0.7); #Neutrophils 6.2 thou/uL (1.40-6.50); %Basophils 0.2 % (0.0-1.0); %Lymphocytes 15.1 % (21.0-51.0); %Monocytes 11.3 % (0.0-10.0); %Neutrophils 69.4 % (42.0-75.0); Hematocrit 23.2 % (42.0-52.0); Hemoglobin 7.6 g/dL (14.0-18.0); Mean Corpuscular HGB CONC 32.8 g/dL (32.0-36.0); Mean Corpuscular Hemoglobin 27.4 pg (27.0-31.0); Mean Corpuscular Volume 83.8 fl (78.0-98.0); Mean Platelet Volume 11.5 fL (7.4-10.4); Platelet Count 241 10x3/uL (130-400); RBC Distribution Width 16.3 % (11.5-14.5); Red Blood Cell (RBC) Count 2.77 mill/uL (4.70-6.10); White Blood Cell (WBC) Count 8.9 10x3/uL (4.8-10.8)
[2023-08-25 06:16] LABS: Anion Gap 15 mmol/L (10-20); BUN (Urea Nitrogen) 37 mg/dL (8.4-25.7); Calc. Creatinine Clearance 11 mL/min (70-130); Calcium 9.1 mg/dL (7.8-10.44); Carbon Dioxide 29 mmol/L (23-31); Chloride 96 mmol/L (98-107); Estimated GFR 9; Glucose 125 mg/dL (80-115); Potassium 4.7 mmol/L (3.5-5.1); Sodium 135 mmol/L (136-145)
[2023-08-25] MEDS: Levothyroxine Sodium 75 MCG TAB PO SCH (06:49)
[2023-08-25] MEDS: Sevelamer Carbonate 800 MG TAB PO SCH ×3 (09:21→18:00)
[2023-08-25] MEDS: Multivit, Therapeutic 1 TAB PO SCH (09:22)
[2023-08-25] MEDS: Fish Oil 1,000 MG CAP PO SCH (09:22)
[2023-08-25] MEDS: Brimonidine Tartrate 0.2% Ophth Soln 5 ml Bottle EA EYE SCH ×2 (09:22→21:49)
[2023-08-25 10:13] LABS: Hemoglobin 7.1 g/dL (14.0-18.0); Platelet Count 232 10x3/uL (130-400)
[2023-08-25] MEDS: TICAGRELOR 90 MG TABLET PO SCH ×2 (10:18→21:48)
[2023-08-25 11:45] LABS: Campy jejuni + coli by PCR Negative (Negative); STEC Shiga Toxin 1+2 Negative (Negative); Salmonella spp. by PCR Negative (Negative); Shigella spp + EIEC by PCR Negative (Negative)
[2023-08-25] MEDS ORDERED: GoLYTELY 4,000 ml Bottle PO SCH (14:45)
[2023-08-25] MEDS: Acetaminophen 325 MG TAB PO PRN (15:28)
[2023-08-25 16:18] LABS: Hematocrit 25.9 % (42.0-52.0); Hemoglobin 8.7 g/dL (14.0-18.0); Platelet Count 222 10x3/uL (130-400)
[2023-08-25] MEDS: Pantoprazole 80 MG, Admixture Fee 1 EACH in Sodium Chloride 0.9% 100 ML IVPB SCH (17:54)
[2023-08-25] MEDS: Atorvastatin Calcium 10 MG TAB PO SCH (21:48)
[2023-08-25 22:23] LABS: Hematocrit 26.4 % (42.0-52.0); Hemoglobin 8.8 g/dL (14.0-18.0); Platelet Count 238 10x3/uL (130-400)
[2023-08-26] MEDS: Pantoprazole 80 MG, Admixture Fee 1 EACH in Sodium Chloride 0.9% 100 ML IVPB SCH ×2 (04:55→14:30)
[2023-08-26] MEDS: Levothyroxine Sodium 75 MCG TAB PO SCH (05:06)
[2023-08-26 05:17] LABS: #Basophils 0.1 thou/uL (0.0-0.2); #Eosinphils 0.3 thou/uL (0.0-0.7); #Monocytes 0.7 thou/uL (0.11-0.59); #Neutrophils 6.4 thou/uL (1.40-6.50); %Basophils 0.6 % (0.0-1.0); %Eosinophils 3.4 % (0.0-10.0); %Lymphocytes 11.3 % (21.0-51.0); %Monocytes 8.5 % (0.0-10.0); %Neutrophils 75.3 % (42.0-75.0); Hematocrit 28.9 % (42.0-52.0); Hemoglobin 9.4 g/dL (14.0-18.0); Mean Corpuscular HGB CONC 32.5 g/dL (32.0-36.0); Mean Platelet Volume 11.6 fL (7.4-10.4); Platelet Count 254 10x3/uL (130-400); RBC Distribution Width 16.2 % (11.5-14.5); Red Blood Cell (RBC) Count 3.36 mill/uL (4.70-6.10); White Blood Cell (WBC) Count 8.5 10x3/uL (4.8-10.8)
[2023-08-26] MEDS: Sevelamer Carbonate 800 MG TAB PO SCH ×3 (07:43→17:59)
[2023-08-26] MEDS: Brimonidine Tartrate 0.2% Ophth Soln 5 ml Bottle EA EYE SCH ×2 (07:44→22:12)
[2023-08-26] MEDS: Fish Oil 1,000 MG CAP PO SCH (07:44)
[2023-08-26] MEDS: Multivit, Therapeutic 1 TAB PO SCH (07:44)
[2023-08-26] MEDS: TICAGRELOR 90 MG TABLET PO SCH ×3 (07:44→22:11)
[2023-08-26 08:20] LABS: Anion Gap 16 mmol/L (10-20); BUN (Urea Nitrogen) 36 mg/dL (8.4-25.7); Calc. Creatinine Clearance 11 mL/min (70-130); Calcium 8.8 mg/dL (7.8-10.44); Carbon Dioxide 27 mmol/L (23-31); Chloride 96 mmol/L (98-107); Estimated GFR 9; Glucose 119 mg/dL (80-115); Potassium 4.2 mmol/L (3.5-5.1); Sodium 135 mmol/L (136-145)
[2023-08-26] MEDS ORDERED: Lidocaine 1% PF 5 ML VIAL ONE ×2 (10:40→12:14)
[2023-08-26] MEDS ORDERED: PROPOFOL 40 ML ONE (10:40)
[2023-08-26] MEDS ORDERED: PHENYLEPHRINE-NS 100 MCG/ML 10 ML SYRINGE ONE ×2 (10:55→12:14)
[2023-08-26] MEDS ORDERED: PROPOFOL 200 MG/20 ML VIAL ONE (12:14)
[2023-08-26] MEDS ORDERED: Ondansetron HCl/PF 4 MG/2 ML Vial IVP PRN (12:56)
[2023-08-26] MEDS: Atorvastatin Calcium 10 MG TAB PO SCH (22:11)
[2023-08-27] MEDS: Pantoprazole 80 MG, Admixture Fee 1 EACH in Sodium Chloride 0.9% 100 ML IVPB SCH (01:50)
[2023-08-27 04:36] LABS: #Eosinphils 0.2 thou/uL (0.0-0.7); #Monocytes 0.5 thou/uL (0.11-0.59); #Neutrophils 4.9 thou/uL (1.40-6.50); %Basophils 0.2 % (0.0-1.0); %Eosinophils 3.7 % (0.0-10.0); %Lymphocytes 11.3 % (21.0-51.0); %Monocytes 8.2 % (0.0-10.0); %Neutrophils 75.5 % (42.0-75.0); Hematocrit 28.1 % (42.0-52.0); Hemoglobin 9.1 g/dL (14.0-18.0); Mean Corpuscular HGB CONC 32.4 g/dL (32.0-36.0); Mean Corpuscular Hemoglobin 27.6 pg (27.0-31.0); Mean Corpuscular Volume 85.2 fl (78.0-98.0); Mean Platelet Volume 11.4 fL (7.4-10.4); Platelet Count 199 10x3/uL (130-400); RBC Distribution Width 16.5 % (11.5-14.5); White Blood Cell (WBC) Count 6.5 10x3/uL (4.8-10.8)
[2023-08-27 05:04] LABS: Anion Gap 16 mmol/L (10-20); BUN (Urea Nitrogen) 22 mg/dL (8.4-25.7); Calc. Creatinine Clearance 12 mL/min (70-130); Calcium 9.2 mg/dL (7.8-10.44); Carbon Dioxide 26 mmol/L (23-31); Chloride 100 mmol/L (98-107); Estimated GFR 10; Glucose 123 mg/dL (80-115); Potassium 4.3 mmol/L (3.5-5.1); Sodium 138 mmol/L (136-145)
[2023-08-27] MEDS: Levothyroxine Sodium 75 MCG TAB PO SCH (05:09)
[2023-08-27] MEDS: Brimonidine Tartrate 0.2% Ophth Soln 5 ml Bottle EA EYE SCH (08:39)
[2023-08-27] MEDS: Fish Oil 1,000 MG CAP PO SCH (08:39)
[2023-08-27] MEDS: TICAGRELOR 90 MG TABLET PO SCH (08:39)
[2023-08-27] MEDS: Multivit, Therapeutic 1 TAB PO SCH (08:39)
[2023-08-27] MEDS: Sevelamer Carbonate 800 MG TAB PO SCH ×2 (08:43→12:11)
[2023-08-27 15:38] VITALS: BP 160/75; TEMP 98.5
[2023-08-28 13:15] LABS: Norovirus GI Negative (Negative); Norovirus GII Negative (Negative)
== END 2023-08-27 17:00 | disposition home or self-care (01) | DRG 377 ==
LOC: ERS 13:10 → 2NO 17:13
PROVIDERS: ADMIT Internal Medicine; ATTEND Family Medicine
PROC: 5A1D70Z Performance of Urinary Filtration, Intermittent, Less than 6 Hours Per Day (ICD-10-PCS; 2023-08-23)
PROC: 0DBH8ZX Excision of Cecum, Via Natural or Artificial Opening Endoscopic, Diagnostic (ICD-10-PCS; principal; 2023-08-26)
PROC: 0DBC8ZX Excision of Ileocecal Valve, Via Natural or Artificial Opening Endoscopic, Diagnostic (ICD-10-PCS; 2023-08-26)
PROC: 30233N1 Transfusion of Nonautologous Red Blood Cells into Peripheral Vein, Percutaneous Approach (ICD-10-PCS; 2023-08-26)
PROC: 3E033XZ Introduction of Vasopressor into Peripheral Vein, Percutaneous Approach (ICD-10-PCS; 2023-08-26)
DX: K28.4 Chronic or unspecified gastrojejunal ulcer with hemorrhage (principal); N18.6 End stage renal disease; K55.9 Vascular disorder of intestine, unspecified; K51.911 Ulcerative colitis, unspecified with rectal bleeding; D62 Acute posthemorrhagic anemia; I12.0 Hypertensive chronic kidney disease with stage 5 chronic kidney disease or end stage renal disease; E11.22 Type 2 diabetes mellitus with diabetic chronic kidney disease; E78.5 Hyperlipidemia, unspecified; H40.9 Unspecified glaucoma; E87.5 Hyperkalemia; E03.9 Hypothyroidism, unspecified; I25.10 Atherosclerotic heart disease of native coronary artery without angina pectoris; D63.1 Anemia in chronic kidney disease; Z96.659 Presence of unspecified artificial knee joint; Z79.890 Hormone replacement therapy; Z79.4 Long term (current) use of insulin; Z79.899 Other long term (current) drug therapy; Z98.890 Other specified postprocedural states; Z93.3 Colostomy status; Z99.2 Dependence on renal dialysis
CPT/HCPCS: 36415; 36416; 36430; 74177; 80048; 80053; 83605; 83630; 83690; 84484; 85025; 85610; 85730; 86704; 86850; 86900; 86901; 87324; 87449; 87505; 87798; 88305; 90935; 93005; 96374; 96375; 96376; C9113; G0257; J1815; J1940; J2270; J2405; J2704; J3490; P9016; Q5105; Q9967

== ENCOUNTER 2023-08-30 20:17 | Inpatient (IN) | payer MEDICARE, BC ==
[~2023-08-30 20:17] MED LIST: PROPOFOL 200 MG/20 ML VIAL ONE
[2023-08-30 22:01] LABS: #Eosinphils 0.1 thou/uL (0.0-0.7); #Monocytes 0.8 thou/uL (0.11-0.59); #Neutrophils 5.1 thou/uL (1.40-6.50); %Basophils 0.3 % (0.0-1.0); %Eosinophils 1.3 % (0.0-10.0); %Lymphocytes 10.9 % (21.0-51.0); %Monocytes 11.7 % (0.0-10.0); Hematocrit 19.3 % (42.0-52.0); Hemoglobin 6.5 g/dL (14.0-18.0); Mean Corpuscular HGB CONC 33.7 g/dL (32.0-36.0); Mean Corpuscular Hemoglobin 28.1 pg (27.0-31.0); Mean Corpuscular Volume 83.5 fl (78.0-98.0); Mean Platelet Volume 10.9 fL (7.4-10.4); Platelet Count 430 10x3/uL (130-400); RBC Distribution Width 16.5 % (11.5-14.5); Red Blood Cell (RBC) Count 2.31 mill/uL (4.70-6.10); White Blood Cell (WBC) Count 6.8 10x3/uL (4.8-10.8)
[2023-08-30 22:14] LABS: Prothrombin Time 13.7 sec (12.0-14.7)
[2023-08-30 22:24] LABS: ALT (SGPT) 7 U/L (8-55); AST (SGOT) 9 U/L (5-34); Alkaline Phosphatase 57 U/L (40-110); Anion Gap 14 mmol/L (10-20); BUN (Urea Nitrogen) 16 mg/dL (8.4-25.7); Bilirubin, Total 0.6 mg/dL (0.2-1.2); Calc. Creatinine Clearance 0 mL/min (70-130); Calcium 8.6 mg/dL (7.8-10.44); Carbon Dioxide 32 mmol/L (23-31); Chloride 98 mmol/L (98-107); Estimated GFR 10; Globulin 2.3 g/dL (2.4-3.5); Glucose 86 mg/dL (80-115); Lipase 136 U/L (8-78); Protein, Total 5.3 g/dL (5.8-8.1); Sodium 140 mmol/L (136-145)
[2023-08-30] MEDS ORDERED: Acetaminophen 325 MG TAB PO PRN (23:41)
[2023-08-30] MEDS ORDERED: Ondansetron PF 4 MG/2 ML Vial IVP PRN (23:41)
[2023-08-30] MEDS ORDERED: TICAGRELOR 90 MG TABLET PO SCH (23:59)
[2023-08-31 00:09] VITALS: BP 134/73; BMI 25.0
[2023-08-31] MEDS ORDERED: HumaLOG 300 UNITS/3 ML VIAL SC PRN ×2 (01:43)
[2023-08-31] MEDS ORDERED: Glucagon 1 MG/ML KIT IM PRN (01:43)
[2023-08-31] MEDS ORDERED: Dextrose 50% Abboject 50 ML SYRINGE SLOW IVP PRN (01:43)
[2023-08-31] MEDS ORDERED: Dextrose 5% in Water 1,000 ML IV PRN (01:43)
[2023-08-31] MEDS ORDERED: Sodium Chloride 0.9% 500 ML IV SCH (03:30)
[2023-08-31] MEDS ORDERED: Pantoprazole 40 MG VIAL IVP SCH (04:00)
[2023-08-31] MEDS ORDERED: Sodium Chloride 0.9% 1,000 ML IV SCH (06:30)
[2023-08-31 07:37] LABS: #Monocytes 0.8 thou/uL (0.11-0.59); #Neutrophils 4.7 thou/uL (1.40-6.50); %Basophils 0.3 % (0.0-1.0); %Monocytes 12.1 % (0.0-10.0); %Neutrophils 72.6 % (42.0-75.0); Mean Corpuscular HGB CONC 34.4 g/dL (32.0-36.0); Mean Corpuscular Hemoglobin 29.1 pg (27.0-31.0); Mean Corpuscular Volume 84.7 fl (78.0-98.0); Mean Platelet Volume 10.6 fL (7.4-10.4); RBC Distribution Width 14.2 % (11.5-14.5); Red Blood Cell (RBC) Count 3.47 mill/uL (4.70-6.10); White Blood Cell (WBC) Count 6.5 10x3/uL (4.8-10.8)
[2023-08-31 07:46] LABS: Hematocrit 29.4 % (42.0-52.0); Hemoglobin 10.1 g/dL (14.0-18.0); Platelet Count 281 10x3/uL (130-400)
[2023-08-31 08:00] LABS: Anion Gap 16 mmol/L (10-20); BUN (Urea Nitrogen) 19 mg/dL (8.4-25.7); Calc. Creatinine Clearance 12 mL/min (70-130); Calcium 7.5 mg/dL (7.8-10.44); Carbon Dioxide 26 mmol/L (23-31); Chloride 100 mmol/L (98-107); Estimated GFR 9; Glucose 98 mg/dL (80-115); Lipase 78 U/L (8-78); Potassium 4.6 mmol/L (3.5-5.1); Sodium 137 mmol/L (136-145)
[2023-08-31] MEDS: Aspirin 81 mg Enteric Coated Tablet PO SCH (08:10)
[2023-08-31] MEDS ORDERED: TICAGRELOR 90 MG TABLET PO SCH (09:00)
[2023-08-31 09:35] LABS: Hematocrit 28.8 % (42.0-52.0)
[2023-08-31] MEDS ORDERED: Lidocaine 1% PF 5 ML VIAL ONE (10:12)
[2023-08-31] MEDS ORDERED: PROPOFOL 0 ML ONE (10:12)
[2023-08-31] MEDS ORDERED: Simethicone 40 MG/0.6 ML Drop 30 ML BOT ONE (10:18)
[2023-08-31] MEDS ORDERED: PROPOFOL 20 ML ONE (10:20)
[2023-08-31] MEDS ORDERED: Iopamidol-370 76% 500 ML MDV (1 ML CHARGE) ONE ×2 (11:36→11:42)
[2023-08-31 17:01] LABS: Hematocrit 20.5 % (42.0-52.0); Hemoglobin 7.2 g/dL (14.0-18.0)
[2023-08-31] MEDS: Pantoprazole 40 MG VIAL IVP SCH (20:56)
[2023-08-31] MEDS: Atorvastatin Calcium 40 MG TAB PO SCH (20:56)
[2023-08-31] MEDS: TICAGRELOR 90 MG TABLET PO SCH (20:56)
[2023-08-31 22:14] LABS: #Monocytes 1.4 thou/uL (0.11-0.59); #Neutrophils 4.4 thou/uL (1.40-6.50); %Basophils 0.3 % (0.0-1.0); %Eosinophils 0.5 % (0.0-10.0); %Lymphocytes 17.2 % (21.0-51.0); %Neutrophils 58.9 % (42.0-75.0); Hematocrit 23.3 % (42.0-52.0); Hemoglobin 8.2 g/dL (14.0-18.0); Mean Corpuscular HGB CONC 35.2 g/dL (32.0-36.0); Mean Corpuscular Volume 85.3 fl (78.0-98.0); Mean Platelet Volume 10.3 fL (7.4-10.4); Platelet Count 260 10x3/uL (130-400); RBC Distribution Width 15.7 % (11.5-14.5); Red Blood Cell (RBC) Count 2.73 mill/uL (4.70-6.10); White Blood Cell (WBC) Count 7.5 10x3/uL (4.8-10.8)
[2023-08-31 22:34] LABS: Anion Gap 16 mmol/L (10-20); BUN (Urea Nitrogen) 26 mg/dL (8.4-25.7); Calc. Creatinine Clearance 10 mL/min (70-130); Calcium 7.5 mg/dL (7.8-10.44); Carbon Dioxide 25 mmol/L (23-31); Chloride 98 mmol/L (98-107); Estimated GFR 8; Glucose 71 mg/dL (80-115); Potassium 4.5 mmol/L (3.5-5.1); Sodium 134 mmol/L (136-145)
[2023-09-01 04:23] LABS: #Eosinphils 0.2 thou/uL (0.0-0.7); #Monocytes 1.4 thou/uL (0.11-0.59); #Neutrophils 6.7 thou/uL (1.40-6.50); %Basophils 0.3 % (0.0-1.0); %Eosinophils 1.6 % (0.0-10.0); %Lymphocytes 10.5 % (21.0-51.0); %Monocytes 14.4 % (0.0-10.0); Hematocrit 23.1 % (42.0-52.0); Mean Corpuscular HGB CONC 34.6 g/dL (32.0-36.0); Mean Corpuscular Hemoglobin 29.4 pg (27.0-31.0); Mean Corpuscular Volume 84.9 fl (78.0-98.0); Mean Platelet Volume 10.8 fL (7.4-10.4); Platelet Count 276 10x3/uL (130-400); RBC Distribution Width 15.4 % (11.5-14.5); Red Blood Cell (RBC) Count 2.72 mill/uL (4.70-6.10); White Blood Cell (WBC) Count 9.7 10x3/uL (4.8-10.8)
[2023-09-01 04:47] LABS: Anion Gap 13 mmol/L (10-20); BUN (Urea Nitrogen) 28 mg/dL (8.4-25.7); Calc. Creatinine Clearance 9 mL/min (70-130); Carbon Dioxide 28 mmol/L (23-31); Chloride 97 mmol/L (98-107); Potassium 4.4 mmol/L (3.5-5.1); Sodium 134 mmol/L (136-145)
[2023-09-01 04:48] LABS: Calcium 7.5 mg/dL (7.8-10.44); Estimated GFR 7; Glucose 82 mg/dL (80-115)
[2023-09-01] MEDS: TICAGRELOR 90 MG TABLET PO SCH (08:28)
[2023-09-01] MEDS: Aspirin 81 mg Enteric Coated Tablet PO SCH (08:28)
[2023-09-01] MEDS: Pantoprazole 40 MG VIAL IVP SCH (08:28)
[2023-09-01 14:24] LABS: Hematocrit 23.2 % (42.0-52.0)
[2023-09-01] MEDS: Atorvastatin Calcium 40 MG TAB PO SCH (19:40)
[2023-09-02] MEDS ORDERED: traZODone HCl 50 MG TAB PO SCH (00:15)
[2023-09-02 03:51] LABS: #Eosinphils 0.3 thou/uL (0.0-0.7); #Monocytes 0.9 thou/uL (0.11-0.59); #Neutrophils 5.8 thou/uL (1.40-6.50); %Basophils 0.2 % (0.0-1.0); %Eosinophils 3.1 % (0.0-10.0); %Lymphocytes 14.5 % (21.0-51.0); Hematocrit 20.1 % (42.0-52.0); Hemoglobin 6.8 g/dL (14.0-18.0); Mean Corpuscular HGB CONC 33.8 g/dL (32.0-36.0); Mean Corpuscular Hemoglobin 29.3 pg (27.0-31.0); Mean Corpuscular Volume 86.6 fl (78.0-98.0); Mean Platelet Volume 10.3 fL (7.4-10.4); Platelet Count 272 10x3/uL (130-400); RBC Distribution Width 15.4 % (11.5-14.5); Red Blood Cell (RBC) Count 2.32 mill/uL (4.70-6.10); White Blood Cell (WBC) Count 8.3 10x3/uL (4.8-10.8)
[2023-09-02 04:14] LABS: Anion Gap 13 mmol/L (10-20); BUN (Urea Nitrogen) 34 mg/dL (8.4-25.7); Calc. Creatinine Clearance 7 mL/min (70-130); Calcium 8.3 mg/dL (7.8-10.44); Carbon Dioxide 28 mmol/L (23-31); Chloride 96 mmol/L (98-107); Estimated GFR 5; Glucose 83 mg/dL (80-115); Potassium 4.3 mmol/L (3.5-5.1); Sodium 133 mmol/L (136-145)
[2023-09-02] MEDS: Aspirin 81 mg Enteric Coated Tablet PO SCH ×2 (09:51→09:58)
[2023-09-02 16:56] VITALS: TEMP 99.1
[2023-09-02 17:33] LABS: Hematocrit 27.8 % (42.0-52.0); Hemoglobin 9.5 g/dL (14.0-18.0)
[2023-09-03] MEDS ORDERED: FLU VACC QS2023(65UP)/MF59C/PF 60 MCG/0.5 ML SYRINGE IM ONE (09:00)
== END 2023-09-02 19:50 | disposition home or self-care (01) | DRG 377 ==
LOC: ERS 20:17 → ERHOLD 23:16 → OBSVTOIN 08-31 00:15 → IMCU/EMU 08-31 02:12
PROVIDERS: ADMIT Internal Medicine; ATTEND Family Medicine
PROC: 0W3P8ZZ Control Bleeding in Gastrointestinal Tract, Via Natural or Artificial Opening Endoscopic (ICD-10-PCS; principal; 2023-08-31)
PROC: 30233N1 Transfusion of Nonautologous Red Blood Cells into Peripheral Vein, Percutaneous Approach (ICD-10-PCS; 2023-08-31)
DX: K92.2 Gastrointestinal hemorrhage, unspecified (principal); N18.6 End stage renal disease; D62 Acute posthemorrhagic anemia; I12.0 Hypertensive chronic kidney disease with stage 5 chronic kidney disease or end stage renal disease; I25.10 Atherosclerotic heart disease of native coronary artery without angina pectoris; E11.22 Type 2 diabetes mellitus with diabetic chronic kidney disease; Z99.2 Dependence on renal dialysis; E78.5 Hyperlipidemia, unspecified; E03.9 Hypothyroidism, unspecified; D63.1 Anemia in chronic kidney disease; Z79.899 Other long term (current) drug therapy; Z79.4 Long term (current) use of insulin; Z95.5 Presence of coronary angioplasty implant and graft
CPT/HCPCS: 36415; 36416; 36430; 74175; 74178; 80048; 80053; 83690; 85025; 85610; 86850; 86900; 86901; 93005; 93010; 99285; C9113; G0378; J1815; J2704; J7030; J7050; P9016; Q9967

== ENCOUNTER 2023-10-04 11:44 | Outpatient (CLI) | payer MEDICARE, BC | END 2023-10-04 11:45 | disposition home or self-care (01) | LOC: SCSRAD 11:44 | PROVIDERS: ATTEND Family Medicine | DX: R05.1 Acute cough (principal); I51.7 Cardiomegaly | CPT/HCPCS: 71046 ==

== ENCOUNTER 2023-12-11 14:04 | Outpatient (CLI) | payer MEDICARE | END 2023-12-11 14:05 | disposition home or self-care (01) | LOC: BICCT 14:04 | PROVIDERS: ATTEND Family Medicine | DX: R51.9 Headache, unspecified (principal) | CPT/HCPCS: 70450 ==